=== PATIENT | female | born 1955 | race Two or more races ===

== ENCOUNTER → 2017-04-23 | Outpatient (CLI) | payer OTHER | END | disposition home or self-care (01) | LOC: MA 12:33 | PROC: BH02ZZZ Plain Radiography of Bilateral Breasts (ICD-10-PCS; principal; 2017-04-23) | DX: Z12.31 Encounter for screening mammogram for malignant neoplasm of breast (principal) | CPT/HCPCS: G0202 ==

== ENCOUNTER 2017-11-03 10:17 | Emergency (ER) | payer OTHER ==
[~2017-11-03] VITALS: Ht 162.6 cm; Wt 103.9 kg
[2017-11-03 10:26] VITALS: BP 143/90; Ht 162.6 cm; Wt 103.9 kg
[2017-11-03 11:17] LABS: BASOPHIL % 0.5 % (0-2); PLATELET COUNT 173 x10^3mcL (130-400); RED CELL DISTRIBUTION WIDTH 13.4 % (11.5-14.5)
== END 2017-11-03 12:20 | disposition home or self-care (01) ==
LOC: ED 10:17
PROVIDERS: Emergency Medicine
DX: N93.8 Other specified abnormal uterine and vaginal bleeding (principal)
CPT/HCPCS: 36415

== ENCOUNTER 2017-11-08 08:52 | Emergency (ER) | payer OTHER ==
[~2017-11-08] VITALS: Ht 162.6 cm; Wt 107.5 kg
[2017-11-08 08:58] VITALS: Ht 162.6 cm; Wt 107.5 kg
[2017-11-08 09:59] LABS: BASOPHIL % 0.7 % (0-2); PLATELET COUNT 166 x10^3mcL (130-400); RED CELL DISTRIBUTION WIDTH 13.1 % (11.5-14.5)
[2017-11-08 10:09] LABS: CALCIUM 8.8 mg/dL (8.5-10.1); CARBON DIOXIDE 25.7 mmol/L (21-32); CHLORIDE SERUM 100 mmol/L (98-107); CREATININE SERUM 0.7 mg/dL (0.6-1.0); GFR1 > 60 mL/min; GLUCOSE SERUM 315 mg/dL (74-106); POTASSIUM SERUM 3.9 mmol/L (3.5-5.1); SODIUM SERUM 135 mmol/L (136-145)
[2017-11-08 10:13] LABS: ALBUMIN 3.5 g/dL (3.4-5.0); ALKALINE PHOSPHATASE 95 U/L (46-116); ALT/SGPT 30 U/L (14-59); AMYLASE 45 U/L (25-115); AST/SGOT 20 U/L (15-37); BILIRUBIN TOTAL 0.86 mg/dL (0.20-1.00); CHOLESTEROL 152 mg/dL (<200); HDL CHOLESTEROL 48 mg/dL (40-60); LIPASE 140 IU/L (73-393); TOTAL PROTEIN, SERUM 7.2 g/dL (6.4-8.2)
[2017-11-08 10:24] LABS: UA SPECIFIC GRAVITY >=1.030 (1.005-1.035); microscopic required? YES; urine erythrocyte 3+ (NEGATIVE)
[2017-11-08 13:31] VITALS: BP 137/78
== END 2017-11-08 13:31 | disposition home or self-care (01) ==
LOC: ED 08:52 → CANBEDREQ 13:08 → ED 13:31
PROVIDERS: Emergency Medicine
DX: N39.0 Urinary tract infection, site not specified (principal); E11.65 Type 2 diabetes mellitus with hyperglycemia; E66.01 Morbid (severe) obesity due to excess calories
CPT/HCPCS: 82962; 83880; J0696; J1815; J1885

== ENCOUNTER 2018-08-09 01:59 | Inpatient (IN) | payer OTHER ==
[~2018-08-09] VITALS: Ht 162.6 cm; Wt 98.7 kg
[2018-08-09 02:10] VITALS: Ht 162.6 cm; Wt 98.7 kg
[2018-08-09 02:41] LABS: microscopic required? NO
[2018-08-09 02:54] LABS: CALCIUM 9.2 mg/dL (8.5-10.1); CARBON DIOXIDE 29.4 mmol/L (21-32); CHLORIDE SERUM 101 mmol/L (98-107); CREATININE SERUM 0.8 mg/dL (0.6-1.0); GFR1 > 60 mL/min; GLUCOSE SERUM 220 mg/dL (74-106); POTASSIUM SERUM 3.5 mmol/L (3.5-5.1); SODIUM SERUM 138 mmol/L (136-145)
[2018-08-09 02:58] LABS: BASOPHIL % 0.2 % (0-2); PLATELET COUNT 220 x10^3mcL (130-400); RED CELL DISTRIBUTION WIDTH 12.5 % (11.5-14.5)
[2018-08-09 02:59] LABS: UA SPECIFIC GRAVITY 1.025 (1.005-1.035); urine erythrocyte NEGATIVE (NEGATIVE)
[2018-08-09 03:08] LABS: ALBUMIN 3.9 g/dL (3.4-5.0); ALKALINE PHOSPHATASE 87 U/L (46-116); ALT/SGPT 142 U/L (14-59); AST/SGOT 113 U/L (15-37); TOTAL PROTEIN, SERUM 7.9 g/dL (6.4-8.2)
[2018-08-09 03:16] LABS: LIPASE 7562 IU/L (73-393)
[2018-08-09] MEDS ORDERED: LISINOPRIL2.5 MG PO (05:39)
[2018-08-09] MEDS ORDERED: GLIPIZIDE5 M2 PO (05:39)
[2018-08-09] MEDS ORDERED: METFORMIN HCL850 MG PO (05:39)
[2018-08-09] MEDS ORDERED: LIPI10 PO (05:40)
[2018-08-09 06:41] LABS: MAGNESIUM 1.9 mg/dL (1.8-2.4); PHOSPHOROUS 3.7 mg/dL (2.5-4.9)
[2018-08-09 06:42] LABS: CHOLESTEROL/HDL RATIO 1.9
[2018-08-09 06:47] LABS: AMPHETAMINE QUAL UR NONE DETECTED (See below)
[2018-08-09 07:24] LABS: FREE T4 1.13 ng/dL (0.76-1.46); T4(THYROXINE) 8.7 ug/dL (4.7-13.3)
[2018-08-09 07:53] LABS: T3 TOTAL 0.9 ng/mL
[2018-08-09 09:52] VITALS: BP 126/64
[2018-08-09 11:22] VITALS: BP 126/64
[2018-08-09 12:52] VITALS: BP 114/65
[2018-08-09 16:36] VITALS: BP 105/54
[2018-08-09 20:44] VITALS: BP 127/69
[2018-08-10 05:15] VITALS: BP 115/69
[2018-08-10 06:16] LABS: CALCIUM 8.2 mg/dL (8.5-10.1); CARBON DIOXIDE 28.9 mmol/L (21-32); CHLORIDE SERUM 107 mmol/L (98-107); CREATININE SERUM 0.6 mg/dL (0.6-1.0); GFR1 > 60 mL/min; GLUCOSE SERUM 126 mg/dL (74-106); LIPASE 479 IU/L (73-393); POTASSIUM SERUM 3.6 mmol/L (3.5-5.1); SODIUM SERUM 143 mmol/L (136-145)
[2018-08-10 06:19] LABS: BASOPHIL % 0.3 % (0-2); PLATELET COUNT 167 x10^3mcL (130-400); RED CELL DISTRIBUTION WIDTH 13.2 % (11.5-14.5)
[2018-08-10 09:23] VITALS: BP 134/70
[2018-08-10 13:39] VITALS: BP 136/92
[2018-08-10 17:22] VITALS: BP 134/71
[2018-08-10 20:28] VITALS: BP 135/65
[2018-08-11 05:22] VITALS: BP 118/61
[2018-08-11 06:26] LABS: CALCIUM 8.3 mg/dL (8.5-10.1); CARBON DIOXIDE 28.6 mmol/L (21-32); CHLORIDE SERUM 106 mmol/L (98-107); CREATININE SERUM 0.6 mg/dL (0.6-1.0); GFR1 > 60 mL/min; GLUCOSE SERUM 149 mg/dL (74-106); LIPASE 280 IU/L (73-393); POTASSIUM SERUM 3.6 mmol/L (3.5-5.1); SODIUM SERUM 142 mmol/L (136-145)
[2018-08-11 06:27] LABS: BASOPHIL % 0.2 % (0-2); PLATELET COUNT 175 x10^3mcL (130-400); RED CELL DISTRIBUTION WIDTH 13.5 % (11.5-14.5)
[2018-08-11 09:04] VITALS: BP 136/74
[2018-08-11 10:44] VITALS: BP 136/74
== END 2018-08-11 11:38 | disposition home or self-care (01) | DRG 439 ==
LOC: ED 01:59 → DU 05:21 → MU 07:27 → DU 07:28
PROVIDERS: Emergency Medicine; ADMIT Internal Medicine
DX: K85.90 Acute pancreatitis without necrosis or infection, unspecified (principal); E87.2 Acidosis; E11.65 Type 2 diabetes mellitus with hyperglycemia; I10 Essential (primary) hypertension; E78.5 Hyperlipidemia, unspecified; Z68.37 Body mass index [BMI] 37.0-37.9, adult; Z79.84 Long term (current) use of oral hypoglycemic drugs
CPT/HCPCS: 82962; 84439; J1885; J2270; J2405; J2543; J7030; Q0092

== ENCOUNTER 2019-01-11 03:30 | Inpatient (IN) | payer OTHER ==
[~2019-01-11] VITALS: Ht 162.6 cm; Wt 97.1 kg
[~2019-01-11 03:30] MED LIST: GLIPIZIDE5 M2 PO; LIPI10 PO; LISINOPRIL2.5 MG PO; METFORMIN HCL850 MG PO
[2019-01-11 03:34] VITALS: Ht 162.6 cm; Wt 97.1 kg
--- NOTE | 2019-01-11 04:10 | NUR ---
PT PRESENTS TO ED WITH C/O RUQ PAIN/ EPIGASTRIC PAIN SINCE LAST NIGHT AROUND 10PM. PER PT THIS PAIN IS ASSOCIATED WITH N/V. AT BEDSIDE STATES PT HAS HX OF PANCREATITIS AND THIS IS THE SAME PAIN SHE GETS WHEN THIS HAPPENS. PT STATES PAIN IS 10/10. PT DENIES CHEST PAIN OR SOB AT THIS TIME. ABDOMEN IS SOFT AND ROUND AND TENDER. PT CONNECTED TO FULL CM AND PULSE OX MONITORS. PT HAS HX OF HIGH CHOLESTEROL AND DIABETES WITH AN APPENDECTOMY, BUT PT STILL HAS GALL BLADDER. ALREADY PERFORMED MSE. PT MEDICATED PER EMAR WITH PAIN RELIEF FROM A 10 TO A 4. PT ABLE TO SPEAK IN CLEAR AND FULL SENTENCES HOWEVER PRIOR TO MEDICATING PT WAS SEEN THRASHING AND HYPERVENTILATING IN BED. RESP E/U AFTER MED ADMINISTRATION. AT BEDSIDE. NAD AT THIS TIME
[2019-01-11] MEDS ORDERED: GOOD SENSE OMEP20 MG PO (04:15)
[2019-01-11] MEDS ORDERED: GLU850 PO (04:15)
[2019-01-11 04:39] LABS: BASOPHIL % 0.3 % (0-2); PLATELET COUNT 174 x10^3mcL (130-400); RED CELL DISTRIBUTION WIDTH 13.5 % (11.5-14.5)
[2019-01-11 04:42] LABS: CALCIUM 8.5 mg/dL (8.5-10.1); CARBON DIOXIDE 27.8 mmol/L (21-32); CHLORIDE SERUM 106 mmol/L (98-107); CREATININE SERUM 0.8 mg/dL (0.6-1.0); GFR1 > 60 mL/min; GLUCOSE SERUM 221 mg/dL (74-106); POTASSIUM SERUM 3.7 mmol/L (3.5-5.1); SODIUM SERUM 144 mmol/L (136-145)
[2019-01-11 04:47] LABS: ALBUMIN 3.7 g/dL (3.4-5.0); ALKALINE PHOSPHATASE 104 U/L (46-116); ALT/SGPT 139 U/L (14-59); AST/SGOT 166 U/L (15-37); BILIRUBIN TOTAL 1.11 mg/dL (0.20-1.00); TOTAL PROTEIN, SERUM 7.3 g/dL (6.4-8.2)
[2019-01-11 05:11] LABS: LIPASE 49531 IU/L (73-393)
--- NOTE | 2019-01-11 06:40 | NUR ---
PT STATES SHE WAS NOT HAVING PAIN AND THEN AMBULATED TO THE RESTROOM AND NOW HAS 7/10 PAIN. MD SAUCEDO MADE AWARE. NEW ORDERS RECIEVED. SEE EMAR
--- NOTE | 2019-01-11 07:03 | NUR ---
MD PADILLA STATES OKAY FOR PT TO HAVE ICE CHIPS. NO WATER AT THIS TIME. PT AND MADE AWARE
--- NOTE | 2019-01-11 07:08 | NUR ---
REPORT GIVEN TO MALIA GALLEGO RN
--- NOTE | 2019-01-11 07:25 | NUR ---
PT AWARE OF ADMISSION. AT BEDSIDE. ORIENTED X 4; BREATHING E/U. NAD NOTED.
--- NOTE | 2019-01-11 08:05 | NUR ---
REPORT GIVEN TO MALLIKA MONTERO.
--- NOTE | 2019-01-11 08:14 | NUR ---
REPORT CALLED TO GEORGI ON MED-SURG.
--- NOTE | 2019-01-11 08:18 | NUR ---
SMILING, STATES PAIN DOWN TO 3/10.
--- NOTE | 2019-01-11 08:25 | NUR ---
RECEIVED PT FROM ER. ADMISSION ASSESSMENT AND HISTORY IS DONE. STABLE. SAFTEY PRECAUTIONS ARE IN PLACE. WILL MONITOR.
[2019-01-11 10:15] VITALS: BP 118/76
--- NOTE | 2019-01-11 11:50 | NUR ---
PT WAS C/O ABD PAIN 02/16. ADMINISTERED DILAUDID IV AT 1120 AND REASSESSED NOW AND PT SAID SHE IS FEELING BETTER, NO MORE PAIN.
--- NOTE | 2019-01-11 13:08 | NUR ---
PT VOMITED AFTER DIALUDID IV. ZOFRAN IV GIVEN ORDERED. PT SAID HER PAIN IS GONE. RESTING IN BED COMFORTABLY.
--- NOTE | 2019-01-11 15:27 | NUR ---
PT WAS C/O ABD PAIN 02/16. ADMINISTERED DILAUDID IV AT 1457 AND REASSESSED NOW AND PT SAID SHE IS FEELING BETTER, NO MORE PAIN.
[2019-01-11 17:34] VITALS: BP 143/70
--- NOTE | 2019-01-11 19:10 | NUR ---
PT RESTING IN BED COMFORTABLY. DENIES ANY PAIN. STABLE. GAVE REPORT TO MOVIE SHOT CAMERAMAN NURSE.
--- NOTE | 2019-01-11 19:42 | NUR ---
RECEIVED PATIENT IN BED AWAKE, ALERT AND ORIENTED WITH NO SIGN OF DISTRESS, BREATHINGEASY AND NONLABOR SATTING AT 99% RA. ABDOMEN ROUND AND NONTENDER WITH ACTIVE BOWEL SOUNDS. IV TO RAC INTACT AND INFUSING WELL. WILL CONTINUE TO MONITOR.
--- NOTE | 2019-01-11 20:15 | NUR ---
C/O ABDOMIANL PAIN AT SCALE OF 8/10 PER PATIENT, MORPHINE 2MG IVP GIVEN PRESCRIBED. WILL CONTINUE TO MONITOR.
[2019-01-11 20:41] VITALS: BP 143/76
--- NOTE | 2019-01-11 21:47 | NUR ---
RELIEF NOTED PER PATIENT AFTER PAIN MEDS WAS GIVEN. WILL CONTINUE TO MONITOR.
--- NOTE | 2019-01-12 01:03 | NUR ---
APPEAR TO BE SLEEPING WITH NO INDICATION OF PAIN AND DISCOMFORT. WILL CONTINUE TO MONITOR.
--- NOTE | 2019-01-12 02:26 | NUR ---
AWAKE C/O ABDOMINAL APIN AT SCALE OF 8/10 PER PATIENT, MORPHINE 2MG IVP GIVEN PRESCRIBED.
[2019-01-12 05:06] VITALS: BP 136/67
--- NOTE | 2019-01-12 05:07 | NUR ---
C/O POST OPERATIVE PAIN X2 THE ENTIRE SHIFT AND MEDICATED PRESCRIBED. INSTRUCTION ON HOW TO USE INCENTIVE SPIROMETER GIVEN AND PATIENT DEMONSTRATE UNDERSTANDING. DRESS TO ABDOMEN CDI WITH BINDER IN PLACE. ALL NEEDS ATTENDED.
--- NOTE | 2019-01-12 05:12 | NUR ---
AWAKE MOST OF THE TIME C/O ABDOMINAL PAIN X2 THE ENTIRE SHIFT, MEDICATED PRESCRIBED. KEPT ON NPO. ALL NEEDS ATTENDED.
[2019-01-12 06:52] LABS: BASOPHIL % 0.1 % (0-2); PLATELET COUNT 150 x10^3mcL (130-400)
[2019-01-12 07:05] LABS: CALCIUM 8.1 mg/dL (8.5-10.1); CARBON DIOXIDE 25.9 mmol/L (21-32); CHLORIDE SERUM 107 mmol/L (98-107); CREATININE SERUM 0.6 mg/dL (0.6-1.0); GFR1 > 60 mL/min; GLUCOSE SERUM 145 mg/dL (74-106); POTASSIUM SERUM 3.3 mmol/L (3.5-5.1); SODIUM SERUM 142 mmol/L (136-145)
--- NOTE | 2019-01-12 07:35 | NUR ---
RECEIVED PT IN BED. ASSESSED AND DOCUMENTED. DENIES ANY PAIN. SLEEPING BUT EASILY AROUSABLE AND TALKING. SAFTEY PRECAUTIONS ARE IN PLACE. WILL MONITOR.
--- NOTE | 2019-01-12 09:15 | NUR ---
PT WAS C/O ABD PAIN,12/17. ADMINISTERED MORHINE IV ORDERED AT 0845 AND REASSESSED NOW, PT IS SLEEPING AND DENIES ANY PAIN.
[2019-01-12 10:02] VITALS: BP 145/81
--- NOTE | 2019-01-12 13:25 | NUR ---
PT WAS C/O ABD PAIN,12/17. ADMINISTERED MORHINE IV ORDERED AT 1255 AND REASSESSED NOW, PT IS SLEEPING AND DENIES ANY PAIN.
[2019-01-12 16:42] VITALS: BP 137/72
--- NOTE | 2019-01-12 19:08 | NUR ---
PT RESTING IN BED COMFORTABLY. DENIES ANY PAIN THIS TIME. STABLE. GAVE REPORT TO THERMAL INTELLIGENCE ANALYST NURSE.
--- NOTE | 2019-01-12 19:15 | NUR ---
RECEIVED REPORT FROM DAY SHIFT RN. PATIENT WAS SEEN AND IS RESTING COMFORTABLY IN BED WITH FAMILY AT BEDSIDE. NPO AT THIS TIME. EDUCATED ON NPO STATUS. PATIENT AND FAMILY BOTH VERBALIZED UNDERSTANDING. NO DISTRESS NOTED. BREATHING EVEN AND UNLABORED ON ROOM AIR. NO SOB OR RESP DISTRESS NOTED. DENIES CHEST PAIN/PRESSURE. NO C/O PAIN. IV TO THE RAC INFUSING WELL. PATENT AND INTACT. NO REDNESS OR SWELLING NOTED. COMFORT AND SAFETY MEASURES IN PLACE. SIDE RAILS UP X2. CALL LIGHT IS WITHIN REACH. WILL CONTINUE TO MONITOR.
[2019-01-12 20:44] VITALS: BP 129/66
--- NOTE | 2019-01-13 00:30 | NUR ---
PATIENT WENT DOWN FOR CT VIA WHEELCHAIR. IV SALINE LOCKED.
--- NOTE | 2019-01-13 01:01 | NUR ---
PATIENT BACK FROM CT. NO DISTRESS NOTED. REQUESTING TO SHOWER. SUPPLIES FOR SHOWERING GIVEN. PATIENT DENIES SOB OR PAIN. DENIES DIZZINESS. STABLE AND EVEN GAIT NOTED. IV WRAPPED AND PROTECTED. INSTRUCTED PATIENT TO CALL FOR ASSISTANCE AND WHEN DONE. BREATHING EVEN AND UNLABORED. WILL CONTINUE TO MONITOR.
--- NOTE | 2019-01-13 01:30 | NUR ---
DONE SHOWERING. SITTING ON BEDSIDE CHAIR BRUSHING HAIR. NO DISTRESS NOTED. WILL CONTINUE TO MONITOR.
--- NOTE | 2019-01-13 02:00 | NUR ---
PATIENT NOW IN BED. MADE COMFORTABLY. C/O MILD ABD PAIN 07/17, BUT STATES PAIN IN TOLERABLE AT THIS TIME. NOT REQUESTING PAIN MEDS. NPO. IV INFUSING WELL. TO LAC. PATENT AND INTACT. NO REDNESS OR SWELLING NOTED. NO DISTRESS NOTED. SAFETY MEASURES IN PLACE. CALL LIGHT IS WITHIN REACH. WILL CONTINUE TO MONITOR.
--- NOTE | 2019-01-13 05:49 | NUR ---
C/O 7/10 ABD PAIN. PRN MORPHINE 2MG IVP WAS ADMINISTERED PRESCRIBED. EDUCATED PATIENT ON MED AND POSS SIDE EFFECTS. DEMONSTRATED UNDERSTANDING. DENIES N/V. NO DISTRESS NOTED. SAFETY MEASURES IN PLACE. CALL LIGHT IS WITHIN REACH. WILL CONTINUE TO MONITOR AND REASSESS PAIN LEVEL.
[2019-01-13 05:52] VITALS: BP 127/75
--- NOTE | 2019-01-13 05:55 | NUR ---
JOSEPHINE, CHARGE NURSE, SPOKE WITH DR CHENEY VIA TELEPHONE AND UPDATED HIM ON CT ABD/PELVIS RESULTS. PER DR CHENEY, HE WILL COME AND ASSESS THE PATIENT. POSS CHOLECYSTECTOMY TODAY.
--- NOTE | 2019-01-13 06:18 | NUR ---
RESTED IN INTERVALS THROUGHOUT THE NIGHT. NO ACUTE CHANGES NOTED. BREATHING EVEN AND UNLABORED ON ROOM AIR. NO SOB OR RESP DISTRESS NOTED. DENIES CHEST PAIN. C/O ABD PAIN X1 AND MEDICATED WITH PRN MORPHINE X1. ABX THERAPY GIVEN THROUGHOUT THE NIGHT WITH NO ADVERSE REACTIONS NOTED. IV TO THE RAC INFUSING LR WELL AT 80ML/HR PER ORDER. PATENT AND INTACT. NO REDNESS OR SWELLING NOTED. DRESSING, CDI. DENIES N/V. SHOWERED THROUGHOUT THE NIGHT. ALL NEEDS AND CONCERNS ADDRESSED. SAFETY MEASURES IN PLACE. CALL LIGHT IS WITHIN REACH. WILL ENDORSE CARE TO DAY SHIFT RN.
[2019-01-13 06:30] LABS: BASOPHIL % 0.2 % (0-2); PLATELET COUNT 154 x10^3mcL (130-400); RED CELL DISTRIBUTION WIDTH 13.4 % (11.5-14.5)
[2019-01-13 06:41] LABS: CALCIUM 8.2 mg/dL (8.5-10.1); CARBON DIOXIDE 29.4 mmol/L (21-32); CHLORIDE SERUM 102 mmol/L (98-107); CREATININE SERUM 0.7 mg/dL (0.6-1.0); GFR1 > 60 mL/min; GLUCOSE SERUM 138 mg/dL (74-106); LIPASE 348 IU/L (73-393); POTASSIUM SERUM 3.5 mmol/L (3.5-5.1); SODIUM SERUM 139 mmol/L (136-145)
--- NOTE | 2019-01-13 07:40 | NUR ---
RECEIVED PT FROM STUDENT COUNSELLOR RN. Ana/SNEHA4. ELKE SURG. DENIES CHEST PAIN/PRESSURE. RESPIRATIONS EQUAL AND UNLABORED ON RA. DENIES SOB. PT STATES PAIN TO MUQ ABDOMEN IS TOLERABLE AT THIS TIME / SINCE RECEIVING PAIN MEDS THIS AM. DENIES ANY N/V AT THIS TIME. IV TO RAC PATENT AND INFUSING. NO REDNESS OR SWELLING NOTED. PT ASKING IF SURGERY WILL BE DONE TODAY. PT INFORMED DR. CHENEY WILL UPDATE HER ONCE HE SHES HER THIS AM. PT VERBALIZED UNDERSTANDING. WILL CONTINUE TO MONITOR. CALL LIGHT IN REACH. BED IN LOWEST POSITION.
[2019-01-13 07:50] VITALS: BP 124/68
--- NOTE | 2019-01-13 08:11 | NUR ---
DR. CHENEY AT BEDSIDE. PER DR. CHENEY LAP SELVIN WILL BE DONE TODAY AT 0900.
--- NOTE | 2019-01-13 08:32 | NUR ---
PT SITTING UP AT BEDSIDE. INFORMED CONSENT OBTAINED. PT GIVEN CHG WIPES. IV SALINE LOCKED TO [facility]. NO REDNESS OR SWELLING NOTED. FLUSHED WELL. CHECKLIST COMPLETE AND IN CHART. REPORT GIVEN TO JEANNE IN OR. PT TAKEN OFF FLOOR VIA [facility].
--- NOTE | 2019-01-13 08:41 | NUR ---
DR. CASTILLO AT BEDSIDE. PT STATES SHE IS NOT READY TO GO HOME. PER DR. CASTILLO KEEP PT UNTIL TOMORROW MORNING. PT ENCOURAGED TO CONTINUE AMBULATING. PT VERBALIZED UNDERSTANDING.
--- NOTE | 2019-01-13 10:06 | NUR ---
PT SITTING UP IN BED. PT REPOSITIONED ON RIGHT SIDE WITH HOB ELEVATED. SEIZURE PRECAUTIONS IN PLACE. NO SIGNS OR INDICATIONS OF PAIN NOTED. PT SMILING AND MAKING SOUNDS. IV PATENT AND INFUSING TO RH. NO REDNESS OR SWELLING NOTED. GIVEN MEDICATIONS VIA G-TUBE FLUSHED WITH TOTAL OF 30 ML OF STERILE WATER. TOLERATED WELL. NO RESIDUAL VOLUME NOTED. FEEDINGS INFUSING AT 40 ML/HR WITH FWF OF 100 Q4HR. NO SIGNS OF N/V NOTED. BLOOD PRESSURE CHECKED WAS 117/72, HR 101. PER CLEVE PAPER CUTTER HOLD MORNING BP MEDS DUE TO LOW BP THIS MORNING. WILL CONTINUE TO MONITOR. CALL LIGHT IN REACH. BED IN LOWEST POSITION.
--- NOTE | 2019-01-13 11:06 | NUR ---
RECEIVED REPORT FROM JEANNE MONTERO IN OR. PT WILL BE BACK ON FLOOR AT 1122.
--- NOTE | 2019-01-13 11:56 | NUR ---
RECEIVED PT BACK FROM OR. NO ACUTE RESP DISTRESS NOTED ON 2L NC. VSS. PT C/O ABDOMINAL PAIN TO OPERATIVE SITE 10/17 SHARP. MEDICATED PER EMAR. IV ANTIBIOTICS INFUSING ORDERED TO RAC. NO REDNESS OR SWELLING NOTED. FLUSHED WELL. DAUGHTER AT BEDSIDE. ASSISTED PT TO BATHROOM. PHYSICAL THERAPIST KEVIN AT BEDSIDE FOR EVAL. ASSISTED PT BACK TO MED. BLOOD SUGAR CHECKED WAS 174. PT CURRENTLY NPO UNTIL DINNER. NO COVERAGE GIVEN. WILL CONTINUE TO MONITOR. CALL LIGHT IN REACH. BED IN LOWEST POSITION.
[2019-01-13 16:24] VITALS: BP 108/61
--- NOTE | 2019-01-13 17:12 | NUR ---
SPOKE WITH CELVE UNDERWATER ROBOTICIST REGARDING INSULIN SLIDING SCALE. PER CLEVE NO SLIDING SCALE WAS ORDER DUE TO PT BEING NPO. PER CLEVE ORDER HUMALIN REGULAR PER SLIDING SCALE.
--- NOTE | 2019-01-13 17:35 | NUR ---
PT SITTING UP AT BEDSIDE. NO ACUTE RESP DISTRESS NOTED ON RA. PT STATES PAIN TO ABDOMEN IS ABOUT A 5/10. PT STATES SHE WOULD LIKE PAIN MEDICATION AFTER PT EATS DINNER. BLOOD SUGAR CHECKED WAS 152. GIVEN 3 UNITS OF REGULAR INSULIN PER SLIDING SCALE. IV ANTIBIOTICS INFUSING ORDERED. WILL CONTINUE TO MONITOR. CALL LIGHT IN REACH. BED IN LOWEST POSITION.
--- NOTE | 2019-01-13 18:19 | NUR ---
PT BACK IN BED. NO ACUTE RESP DISTRESS NOTED ON RA. PT STATES PAIN TO ABDOMEN IS 7/10 PRESSURE. MEDICATED PER EMAR. IV FLUSHED WELL. NO REDNESS OR SWELLING NOTED. PT TOLERATED DINNER WELL. PT DENIES ANY N/V. WILL CONTINUE TO MONITOR. CALL LIGHT IN REACH. BED IN LOWEST POSITION.
--- NOTE | 2019-01-13 18:58 | NUR ---
PT SITTING UP IN BED. PT STATES PAIN HAS IMPROVED A LOT SINCE RECEIVING PAIN MEDICATION. IV PATENT AND INFUSING TO RAC. NO REDNESS OR SWELLING NOTED. PT DENIES ANY N/V. WILL ENDORSE TO COOK AT SCHOOL RN. CALL LIGHT IN REACH. BED IN LOWEST POSITION.
[2019-01-13 20:15] VITALS: BP 116/58
--- NOTE | 2019-01-13 20:18 | NUR ---
PT RECIEVED AAO REG RESP NO SOB V/S STABLE,KEPT CHIKI AND DRY TO TOUCH,IV INFUSING WELL WITH TNE SITE PATENT AND INTACT,IV INFUSING WELL WITH TNE SITE PATENT AND INTACT,ABDO IS SOFT WITH ACTIVE BOWEL SOUNDS ABD WITH BAND AID WITH THE SITE INTACT,PT PASSING GAS BUT NO BOWEL MOVEMENT YET,KEPT CLEAN AND DRY TO TOUCH,NO PAIN AT THIS TIME,CALL LIGHT EASY REACHED AND WILL CONTINHUE TO MONITOR.
--- NOTE | 2019-01-13 21:56 | NUR ---
PT WITH C/O OF SURGICAL PAIN ARCHING IN NATURE AT TGE SCALE OF 7/10,PT WAS MEDICATED WITH MORHINE 2 MG IV ORDER AND WILL CONTINUE TO MONITOR.
--- NOTE | 2019-01-13 23:41 | NUR ---
PT RESTING AT THIS TIME AND WILL CONTINUE TO MONITOR
[2019-01-14 05:20] VITALS: BP 124/57
[2019-01-14 06:07] LABS: BASOPHIL % 0.1 % (0-2); PLATELET COUNT 160 x10^3mcL (130-400); RED CELL DISTRIBUTION WIDTH 13.4 % (11.5-14.5)
--- NOTE | 2019-01-14 06:24 | NUR ---
PT HAD A RESTING NIGHT NO CHANGE AT THIS TIME,WILL CONTINUE TO MONITOR.
[2019-01-14 06:54] LABS: CALCIUM 7.7 mg/dL (8.5-10.1); CHLORIDE SERUM 106 mmol/L (98-107); CREATININE SERUM 0.6 mg/dL (0.6-1.0); GFR1 > 60 mL/min; GLUCOSE SERUM 110 mg/dL (74-106); POTASSIUM SERUM 3.4 mmol/L (3.5-5.1); SODIUM SERUM 142 mmol/L (136-145)
--- NOTE | 2019-01-14 07:20 | NUR ---
RECEIVED PT FROM SAND ANALYST RN. A/OX4. MED SURG. DENIES CHEST PAIN/PRESSURE. RESPIRATIONS EQUAL AND UNLABORED ON RA. DENIES SOB. PT STATES PAIN TO ABDOMEN IS TOLERABLE AT THIS TIME 06/19. PT STATES "I DON'T LIKE THE MORPHINE. I LIKE THE NORCO BETTER" ABDOMINAL INCISIONS X4 WITH RUCHI, COVERED WITH BANDAIDS, CDI. MINIMAL DRIED BLOOD NOTED TO MLQ ABDOMINAL INCISION. PT DENIES ANY N/V. PT C/O FEELING HUNGRY. IV PATENT AND INFUSING TO RAC. NO REDNESS OR SWELLING NOTED. WILL CONTINUE TO MONITOR. CALL LIGHT IN REACH. BED IN LOWEST POSITION.
[2019-01-14 07:39] VITALS: BP 121/67
--- NOTE | 2019-01-14 08:15 | NUR ---
PT SITTING UP AT BEDSIDE. PT C/O ABDOMINAL PAIN 10/17 PRESSURE TO OPERATIVE SITE. MEDICATED PER EMAR. TOLERATED WELL. PT STATES "THEY GAVE ME ENSURE AND IT HAS A LOT OF SUGAR. IT MAKES MY SUGAR GO UP." INFORMED PT WOULD NEED DOCTOR TO ORDER NEW DIET TO HAVE ENSURE CHANGED. PT VERBALIZED UNDERSTANDING. WILL CONTINUE TO MONITOR. CALL LIGHT IN REACH. BED IN LOWEST POSITION.
--- NOTE | 2019-01-14 10:31 | NUR ---
PT SITTING UP IN BED. AND DAUGHTER AT BEDSIDE. DISCUSSED WITH PT POC. INFORMED PT AND FAMILY IF DR. BAÑUELOS CLEARS PT TO GO HOME THEN PT MAY BE DISCHARGED LATER THIS EVENING. PT ASKING IF ITS NORMAL TO STILL HAVE DISCOMFORT. PT ENCOURAGED TO KEEP WALKING TO HELP ALLEVIATE PRESSURE. PT VERBALIZED UNDERSTANDING. PT INFORMED SHE WILL BE UPDATED ONCE DISCHARGE IS AVAILABLE. WILL CONTINUE TO MONITOR. CALL LIGHT IN REACH. BED IN LOWEST POSITION.
--- NOTE | 2019-01-14 11:43 | NUR ---
PT SITTING UP AT BEDSIDE. NO ACUTE RESP DISTRESS NOTED ON RA. PT STATES PAIN TO ABDOMEN IS TOLERABLE AT THIS TIME 08/17. BLOOD SUGAR CHECKED WAS 158. GIVEN 3 UNITS OF REGULAR INSULIN PER SLIDING SCALE. IV ANTIBIOTICS INFUSING TO RAC ORDERED. NO REDNESS OR SWELLING NOTED. PT AMBULATED TO BATHROOM. WILL CONTINUE TO MONITOR. CALL LIGHT IN REACH. BED IN LOWEST POSITION.
[2019-01-14] MEDS ORDERED: NORCO1 TA2 PO (11:55)
[2019-01-14 11:59] VITALS: BP 121/67
--- NOTE | 2019-01-14 14:15 | NUR ---
PT SITTING UP AT BEDSIDE. DAUGHTER YOHANA AT BEDSIDE. PT GIVEN DISCHARGE INSTRUCTIONS. PT ENCOURAGED TO CONTINUE HOME MEDICAITONS PRESCRIBED. PT GIVEN PRESCRIPTION FOR NORCO, PT INSTRUCTED TO TAKE EVERY 6 HOURS NEEDED FOR PAIN, PT INSTRUCTED LAST DOSE WAS GIVEN AT 8:10 AM THIS MORNING, PT IS OKAY TO TAKE WHEN FEELING PAIN. PT VERBALIZED UNDERSTANDING. WOUND PHOTOS TAKEN. PT GIVEN DR. CHENEY CLINIC PHONE NUMBER AND ENCOURAGED TO CALL TO SCHEDULE FOLLOW UP APPOINTMENT WITHIN ONE WEEK. PT VERBALIZED UNDERSTANDING. IV TO RAC REMOVED CATHETER INTACT. PT EDUCATED ON CARING FOR INCISIONS. PT ENCOURAGED TO RETURN TO ER IF ANY WORSENING SYMPTOMS OF FEVER, SOB, DRAINAGE OR BAD ODOR FROM INCISION SITE. ALL QUESTIONS AND CONCERNS ADDRESSED. NO PROBLEMS ENCOUNTERED. PT TAKEN OFF FLOOR VIA WHEELCHAIR.
== END 2019-01-14 14:20 | disposition home or self-care (01) | DRG 417 ==
LOC: ED 03:30 → MU 07:15
PROVIDERS: Emergency Medicine; Surgery; ADMIT Internal Medicine
PROC: BF10YZZ Fluoroscopy of Bile Ducts using Other Contrast (ICD-10-PCS; 2019-01-13)
PROC: 0FT44ZZ Resection of Gallbladder, Percutaneous Endoscopic Approach (ICD-10-PCS; principal; 2019-01-13 09:30)
DX: K81.0 Acute cholecystitis (principal); K85.90 Acute pancreatitis without necrosis or infection, unspecified; E11.9 Type 2 diabetes mellitus without complications; E78.5 Hyperlipidemia, unspecified; I10 Essential (primary) hypertension; Z68.36 Body mass index [BMI] 36.0-36.9, adult; Z79.84 Long term (current) use of oral hypoglycemic drugs
CPT/HCPCS: 82962; 97116-GP; C1887; C9113; G0378; J0330; J1170; J1885; J2175; J2250; J2270; J2405; J2543; J2704; J2710; J3010; J3490; J7030; J7042; J7120; Q0092

== ENCOUNTER 2019-01-24 12:41 | Emergency (ER) | payer OTHER ==
[~2019-01-24] VITALS: Ht 162.6 cm; Wt 94.3 kg
[~2019-01-24 12:41] MED LIST changes: +GLU850 PO; +GOOD SENSE OMEP20 MG PO; +NORCO1 TA2 PO
[2019-01-24 14:00] LABS: BASOPHIL % 0.4 % (0-2); PLATELET COUNT 387 x10^3mcL (130-400); RED CELL DISTRIBUTION WIDTH 13.3 % (11.5-14.5)
[2019-01-24 14:03] LABS: CALCIUM 9.3 mg/dL (8.5-10.1); CHLORIDE SERUM 105 mmol/L (98-107); CREATININE SERUM 0.7 mg/dL (0.6-1.0); GFR1 > 60 mL/min; GLUCOSE SERUM 170 mg/dL (74-106); SODIUM SERUM 143 mmol/L (136-145)
[2019-01-24 14:11] LABS: ALKALINE PHOSPHATASE 83 U/L (46-116); ALT/SGPT 22 U/L (14-59); AST/SGOT 14 U/L (15-37); BILIRUBIN TOTAL 0.4 mg/dL (0.20-1.00); TOTAL PROTEIN, SERUM 7.5 g/dL (6.4-8.2)
[2019-01-24 14:14] LABS: ALBUMIN 2.9 g/dL (3.4-5.0)
[2019-01-24 14:30] LABS: LIPASE 240 IU/L (73-393)
[2019-01-24 15:24] LABS: microscopic required? YES; urine erythrocyte NEGATIVE (NEGATIVE)
[2019-01-24 17:35] VITALS: BP 107/65
== END 2019-01-24 17:35 | disposition home or self-care (01) ==
LOC: ED 12:41
PROVIDERS: Emergency Medicine
DX: R10.816 Epigastric abdominal tenderness (principal); R10.811 Right upper quadrant abdominal tenderness; K62.5 Hemorrhage of anus and rectum; E11.9 Type 2 diabetes mellitus without complications; E78.00 Pure hypercholesterolemia, unspecified; R11.0 Nausea; R53.1 Weakness; R50.9 Fever, unspecified; Z90.49 Acquired absence of other specified parts of digestive tract
CPT/HCPCS: J2270; J2405; Q9967